=== PATIENT | female | born 1985 | race Asian ===

== ENCOUNTER 2017-08-19 21:50 | Observation (INO) | payer BC ==
[~2017-08-19] VITALS: Ht 163 cm; Wt 72.6 kg
[2017-08-19 22:00] VITALS: BP 100/55
[2017-08-19] MEDS ORDERED: LACTATED RINGERS 1,000 ML IV SCH (22:31)
[2017-08-19] MEDS ORDERED: MORPHINE SULFATE 10 MG/ML SYR IVP PRN (22:35)
[2017-08-20 00:49] LABS: BASOPHILS # (AUTO) 0.2 K/uL (0.00-0.22); BASOPHILS % (AUTO) 1.4 % (0.0-2.0); EOSINOPHILS % (AUTO) 0.4 % (0.0-4.0); HEMATOCRIT 34.1 % (36-48); HEMOGLOBIN 11.4 g/dL (12.0-16.0); LYMPHOCYTES # (AUTO) 1.3 K/uL (2.5-16.5); LYMPHOCYTES % (AUTO) 11.7 % (20.5-51.1); MEAN CORPUSCULAR HEMOGLOBIN 29 pg (27-31); MEAN CORPUSCULAR HGB CONC 33 g/dL (33-37); MEAN CORPUSCULAR VOLUME 86 fL (80-94); MONOCYTES # (AUTO) 0.6 K/uL (0.8-1.0); MONOCYTES % (AUTO) 5.1 % (1.7-9.3); PLATELET COUNT (AUTO) 196 K/uL (140-450); RED BLOOD CELL COUNT(AUTO) 3.97 MIL/uL (4.20-5.40); RED CELL DISTRIBUTION WIDTH 12.9 % (11.6-13.7); WHITE BLOOD COUNT (AUTO) 11.1 K/uL (4.8-10.8)
[2017-08-20 00:58] LABS: NEUTROPHILS % (AUTO) 81.4 % (42.2-75.2)
[2017-08-20 01:29] LABS: AMYLASE 54 U/L (25-115); LIPASE 222 U/L (73-393)
--- NOTE | 2017-08-20 09:43 | NUR ---
PATIENT HAS BEEN SCREENED AND CATEGORIZED LOW NUTRITION RISK. PATIENT WILL BE SEEN WITHIN 7 DAYS OF ADMISSION. 08/26/[address]
== END 2017-08-20 09:00 | disposition home or self-care (01) ==
LOC: MLD 21:50
PROVIDERS: ADMIT Obstetrics & Gynecology; ATTEND Obstetrics & Gynecology
DX: O26.892 Other specified pregnancy related conditions, second trimester (principal); R10.9 Unspecified abdominal pain; Z3A.18 18 weeks gestation of pregnancy
CPT/HCPCS: 36415; 76705; 76805; 81000; 82150; 83690; 85025; G0378; J7120; Q0092